=== PATIENT | male | born 1975 | race Caucasian/White ===

== ENCOUNTER 2016-08-27 14:09 | Inpatient (IN) ==
[2016-08-27 15:04] LABS: MANUAL DIFF NEEDED? NO
--- NOTE | 2016-08-27 15:07 | EKG Report ---
Test Performed on : 08/27/2016 2:20:51 PM Test Reason : syncope Blood Pressure : / mmHG Vent. Rate : 079 BPM Atrial Rate : 079 BPM P-R Int : 166 ms QRS Dur : 096 ms QT Int : 514 ms P-R-T Axes : 025 002 -84 degrees QTc Int : 589 ms Sinus rhythm. with occasional premature ventricular complexes. Possible Left atrial enlargement Low voltage QRS Nonspecific T wave abnormality Prolonged QT Abnormal ECG No previous ECGs available Unconfirmed Result
--- NOTE | 2016-08-27 15:19 | Diag Imaging Result Document ---
PROCEDURE NAME: CHEST-2 VIEWS - 08/27/2016 CHEST X-RAY 2 VIEWS: COMPARISON: 12/21/2013. FINDINGS: There is new, significant cardiomegaly. There is pulmonary vascular congestion. There is left basilar infiltrate. There are small bilateral pleural effusions. There may be some pulmonary edema. IMPRESSION: Left basilar infiltrate/pneumonia. Cardiomegaly, pulmonary vascular congestion, trace effusions.
[2016-08-27 15:25] LABS: BASO% 0.2 % (0.0-0.8); EOS# 0.05 X1000 (0.0-0.7); EOS% 0.8 % (0.0-10.0); HEMATOCRIT 44.7 % (42.0-52.0); HEMOGLOBIN 14.6 g/dL (14.0-18.0); LYMPH# 0.52 X1000 (1.2-3.4); LYMPH% 8.6 % (20.5-51.1); MCH 29.4 PG (27-31); MCHC 32.7 g/dL (33-37); MCV 89.9 FL (81-99); MONO# 0.74 X1000 (0.11-0.59); MONO% 12.2 % (1.7-9.3); MPV 11.1 FL (7.4-10.4); NEUT% 78.2 % (42.2-75.2); PLT 122 X1000 (130-400); RBC 4.97 XMIL (4.7-6.1)
[2016-08-27 15:35] LABS: INR 1.14; PROTIME 12.1 Seconds (9.2-11.7)
--- NOTE | 2016-08-27 15:48 | ED EKG INTERP ---
EKG Interpretation - EKG Time of EKG reading by physician:: 14:20 EKG Read and Signed by:: Jordan Perez EKG Interpretation (*Must complete 3 of following elements*): Abnormal ( nonspecific T wave abnormality; prolonged QT) Rate: 79 Rhythm: sinus rhythm w occasional premature ventricular complexes Comments: possible L atrial enlargement; low voltage QRS; Attestation - Scribe Verification/Attestation Scribe:: Magdalena Montaño Acting as Scribe for:: Jordan Perez Scribe documention review:: This chart was documented by a scribe and accurately reflects the service the provider performed and the decisions made by the provider.
[2016-08-27 15:58] LABS: ALBUMIN 3.3 g/dL (3.5-5.0); CALCIUM 7.4 mg/dL (8.8-10.2); MAGNESIUM 2.7 mg/dL (1.5-2.7); POTASSIUM 6.3 mmol/L (3.5-5.1); TOTAL BILIRUBIN 0.39 mg/dL (0.20-1.00)
[2016-08-27] MEDS ORDERED: CALCIUM GLUCONATE 1 GM in NS 50 ML IV ONE (16:05)
[2016-08-27] MEDS ORDERED: HUMULIN R IV ONE (16:07)
[2016-08-27] MEDS ORDERED: D50W SYRINGE IV ONE (16:07)
[2016-08-27] MEDS ORDERED: ALBUTEROL NEB INH ONE (16:08)
--- NOTE | 2016-08-27 16:15 | PROVIDER DOCUMENTATION ---
HPI-Syncope/Dizziness - General Chief Complaint: Syncope Stated Complaint: weakness(unable to complete dialysis) Time Seen by Provider: 08/27/16 15:55 Source: family (girlfriend) Allergies/Adverse Reactions: Patient Allergies Allergy/AdvReac Type Severity Reaction Status Date / Time Penicillins Allergy Unknown Verified 03/23/16 20:09 - History of Present Illness-Syncope/Dizzy Nature of Presenting Problem: Pt is 41 y/o M presents to the ED with syncope for two weeks. Pt's girlfriend states Pt has not been to dialysis since August 19. Pt's girlfriend states he can not make it to dialysis due to only having one vehicle. Pt's girlfriend states Pt has not had N/V/D. If witnessed syncope, by whom?: yes Prior Episodes: reports: recent history Onset/Duration: reports: this morning Timing: reports: still present, intermittent Position/Activity at time of episode: reports: sitting, lying, standing, activity Symptoms prior to episode: reports: none Context: reports: unknown Loss of Consciousness: no loss of consciousness Location of injury. (If syncope resulted in an injury.): reports: none Current Symptoms: reports: weakness. denies: none/feels normal, fever, chills, sweaty, chest pain, breathing difficulty, short of breath, abdominal pain, nausea, vomiting, shoulder pain, arm pain, lightheaded, dizzy, headache, pale, weak pulse, headache, blurred vision, lightheaded Recently Seen Here or By Another Healthcare Provider: No Review of Systems - Adult - REVIEW OF SYSTEMS - ADULT Constitutional: denies: chills, fever Eyes: denies: blurred vision, double vision Ears, Nose, Mouth & Throat: denies: ear pain, nose pain, throat pain Cardiovascular: denies: chest pain, heart murmur, irregular heart rate Respiratory: denies: cough, shortness of breath, wheezing Gastrointestinal: denies: abdominal pain, diarrhea, nausea, vomiting Genitourinary: denies: dysuria, hematuria Musculoskeletal: denies: bone pain, joint pain, neck pain Integumentary: denies: hives, itching Neurological: reports: syncope. denies: dizziness/vertigo, headache/migraines Psychiatric: reports: no symptoms reported Endocrine: reports: no symptoms reported Hematologic/Lymphatic: reports: no symptoms reported Allergic/Immunologic: reports: no symptoms reported All Other Systems: Reviewed and Negative Past History - Adult - PAST MEDICAL HISTORY-ADULT Review of Records: reports: Nursing Assessment Review, Medications Reviewed, Social history reviewed & non-contributory. Major Childhood Illnesses: reports: denies history Cardiovascular: reports: HTN, hyperlipidemia Respiratory: reports: denies history Gastrointestinal: reports: denies history Obstetrical/Gynecological: reports: denies history Genitourinary: reports: kidney disease Musculoskeletal: reports: denies history Neurological: reports: denies history Endocrine/Immune: reports: Diabetes Other Conditions: reports: denies history - PRIOR SURGERIES/PROCEDURES Surgical/Procedure History: reports: cholecystectomy, back/neck (back ) - IMMUNIZATION STATUS Childhood Immunizations: See Nurse Assessment Flu Vaccine: See Nurse Assessment - FAMILY HISTORY Family History: reviewed, not pertinent - SOCIAL HISTORY Smoking: cigarettes, greater than 1 pack/day Provider spent 3-5 mins advising pt. on dangers of tobacco.: Discussed manners to quit use, and f/u contacts for add'l counseling. Substance Use: denies Living Situation: family Physical Exam-General - PHYSICAL EXAM-ADULT Initial Vital Signs Reviewed: Yes - CONSTITUTIONAL General Appearance: alert, no apparent distress, slow to respond. negative: appears well (ill in appearance) - EYES Eyes: PERRL/EOMI, pink conjunctivae - HEAD, EARS, NOSE, MOUTH & THROAT HENMT: normocephalic/atraumatic, moist mucous membranes, normal ENT inspection - NECK Neck: non-tender, full range of motion, supple, normal inspection - RESPIRATORY Respiratory: chest non-tender, lungs clear, normal breath sounds - CARDIOVASCULAR Cardiovascular: normal peripheral pulses, regular rate, rhythm, no edema - GASTROINTESTINAL (ABDOMEN) Abdominal Exam: normal bowel sounds, non tender, soft, distended - LYMPHATIC Lymphatic: no adenopathy - MUSCULOSKELETAL Back Exam: normal inspection, no CVA tenderness, no vertebral tenderness Extremity: normal range of motion, non-tender, normal gait - SKIN Integumentary: normal color, normal turgor, warm/dry - NEUROLOGIC 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, grossly normal, no motor/sensory deficits - PSYCHIATRIC Psych/Mental Status: normal mood/affect, normal thought content, normal thought process, oriented x 3 Progress - PLAN OF CARE/RESULTS Progress/Plan/Lab Results: Laboratory Tests 08/27/16 08/27/16 08/27/16 14:28 14:28 14:28 WBC 6.06 RBC 4.97 Hgb 14.6 Hct 44.7 MCV 89.9 MCH 29.4 MCHC 32.7 L RDW Std Deviation 17.0 H Plt Count 122 L MPV 11.1 H Immature Gran % (Auto) 0.0 Neut % (Auto) 78.2 H Lymph % (Auto) 8.6 L Bland % (Auto) 12.2 H Eos % (Auto) 0.8 Baso % (Auto) 0.2 Immature Gran # (Auto) 0.00 Neut # 4.74 Lymph # 0.52 L Bland # 0.74 H Eos # 0.05 Baso # 0.01 PT INR PTT (Actin FS) D-Dimer 1.11 H Sodium 139 Potassium 6.3 H* Chloride 98 Carbon Dioxide 17 L Anion Gap 24 BUN 135 H Creatinine 11.9 H* Estimated GFR/1.73 m2 5 BUN/Creatinine Ratio 12 Glucose 186 H Calculated Osmolality 329 Calcium 7.4 L Magnesium 2.7 Total Bilirubin 0.39 AST 12 ALT 16 Alkaline Phosphatase 151 H Creatine Kinase 280 H Creatine Kinase Index 12.8 H CK-MB (CK-2) 35.82 H Troponin T [id number]-[id number] Pept Total Protein 6.0 L Albumin 3.3 L Globulin 2.7 Albumin/Globulin Ratio 1.2 08/27/16 08/27/16 08/27/16 14:28 14:28 14:28 WBC RBC Hgb Hct MCV MCH MCHC RDW Std Deviation Plt Count MPV Immature Gran % (Auto) Neut % (Auto) Lymph % (Auto) Bland % (Auto) Eos % (Auto) Baso % (Auto) Immature Gran # (Auto) Neut # Lymph # Bland # Eos # Baso # PT 12.1 H INR 1.14 PTT (Actin FS) 32.0 D-Dimer Sodium Potassium Chloride Carbon Dioxide Anion Gap BUN Creatinine Estimated GFR/1.73 m2 BUN/Creatinine Ratio Glucose Calculated Osmolality Calcium Magnesium Total Bilirubin AST ALT Alkaline Phosphatase Creatine Kinase Creatine Kinase Index CK-MB (CK-2) Troponin T 0.701 H* [id number] Pept > 92207 H Total Protein Albumin Globulin Albumin/Globulin Ratio Orders Category Date Time Status Cardiac Monitoring DIRECTED Care 08/27/16 14:19 Active Saline Loc NOW Care 08/27/16 14:19 Active CHEST-2 VIEWS [RAD] Stat Exams 08/27/16 14:19 Draft CBC WITH ELECTRONIC DIFF [HEME] Stat Lab 08/27/16 14:28 Completed CK PROFILE [SP CHEM] Stat Lab 08/27/16 14:28 Completed COMPREHENSIVE METABOLIC PANEL [CHEM] Stat Lab 08/27/16 14:28 Completed D-DIMER [CHEM] Stat Lab 08/27/16 14:28 Completed MAGNESIUM [CHEM] Stat Lab 08/27/16 14:28 Completed PRO B-NATRIURETIC PEPTIDE Stat Lab 08/27/16 14:28 Completed PROTIME WITH INR [COAG] Stat Lab 08/27/16 14:28 Completed PTT [COAG] Stat Lab 08/27/16 14:28 Completed TROPONIN T Stat Lab 08/27/16 14:28 Completed UA NIMS W/REFLEX CULT [URINALYSIS] Stat Lab 08/27/16 16:04 Uncollected Albuterol 0.5% INH Conc [Albuterol 0.5% INH Conc For Med 08/27/16 16:30 Once Hyperkalemia] 25 mg INH NOW ONE Calcium Gluconate 1 gm Med 08/27/16 16:05 Active 0.9% Sodium Chloride Inj [Ns] 50 ml IV NOW Dextrose 50% Syringe [D50w Syringe] Med 08/27/16 16:07 Discontinued 50 ml IV NOW ONE Insulin Human Regular [Humulin R] Med 08/27/16 16:07 Discontinued 10 unit IV NOW ONE Aerosol Treatments Routine Oth 08/27/16 16:09 Active Aerosol Treatments Stat Oth 08/27/16 16:09 Active EKG [EKG] Stat Ther 08/27/16 14:19 Draft Vital Signs - 24 hr 08/27/16 14:14 Temperature 97.4 F L Pulse Rate 75 Respiratory 16 Rate Blood Pressure 169/83 O2 Sat by Pulse 97 Oximetry - XRAY 1 XRAY: Bilateral XRAY Study: Chest Impression: Abnormal (pulmonary vascular congestion; trace effusions) XRAY Interpretation: L basilar infilatrate/pneumonia. cardiomegaly; - CONSULTS/PCP/HOSPITALIST Notification #1 *Consult/PCP/Hospitalist*: Dr. Horton Time Discussed: 16:27 (Dr. Horton wants Pt admitted to hospitalist ) Reason/Comments: Dr. Perez consults with Dr. Horton about Pt #2 Consult: Dr. Haney Time Discussed: 16:36 (Dr. Haney accepted admit ) Reason/Comments: Dr. Perez consulted with Dr. Haney about admit of Pt Consult Disposition: Admit Departure - Departure Time of Disposition Order: 16:28 DIAGNOSIS: Hyperkalemia, Noncompliance with renal dialysis Disposition: ADMITTED INPATIENT 09 Certified Medical Emergency: Emergent Condition: Fair Additional Instructions: ED Follow Up Instructions: You have been treated by a care provider in the Emergency Department. These instructions are being provided to you so you can have an understanding of how to care for yourself upon discharge. Upon discharge from the Emergency Department, you are responsible for making arrangements for follow-up care by a physician of your choice. Take all prescribed medications as directed. Return to the Emergency Department immediately for any new or worsening symptoms. You may call the Physician Referral phone number at [phone] to obtain a list of Physicians who are taking new patients. Referrals: None,PCP [Primary Care Provider] - Attestation - Scribe Verification/Attestation Scribe:: Magdalena Montaño Acting as Scribe for:: Jordan Perez Scribe documention review:: This chart was documented by a scribe and accurately reflects the service the provider performed and the decisions made by the provider.
[2016-08-27 16:18] LABS: CK INDEX 12.8 (0.0-2.5); CK-MB 35.82 ng/mL (0.0-5.0)
[2016-08-27] MEDS ORDERED: ALBUTEROL 0.5% INH CONC FOR HYPERKALEMIA INH ONE (16:30)
[2016-08-27] MEDS ORDERED: HEPARIN ONE (16:50)
[2016-08-27] MEDS ORDERED: NS 3,000 ML ONE (16:50)
[2016-08-27] MEDS ORDERED: ASPIRIN PO STA (19:08)
[2016-08-27] MEDS ORDERED: TIGHT: 0.2 ML/HR MISC PRN (20:21)
[2016-08-27] MEDS ORDERED: NS 2,000 ML MISC PRN (20:21)
[2016-08-27] MEDS ORDERED: HEPARIN IV PRN (20:21)
--- NOTE | 2016-08-27 20:40 | HISTORY AND PHYSICAL ---
RESEARCH INTERN: Dr. Ajit Horton. CHIEF COMPLAINT: Chest pain. Shortness of breath. Syncope and missed dialysis. HISTORY OF PRESENT ILLNESS: Mr. Villagran is a 41-year-old male with a history of ESRD on hemodialysis who is followed by Dr. Horton. Unfortunately he has missed his dialysis over the past week and a half as he could not find a ride to the dialysis clinic. As such, he has been complaining of worsening shortness of breath and generalized edema. He also states that he is having intermittent chest pain, he describes midsternal kicking type sensation that does not radiate and is made worse with exertion and relieved with rest. He also states he has been dizzy today and actually had 2 syncopal episodes. He reports worsening shortness of breath and cough with subjective fever and chills. He came to the ER today and was noted to have a potassium of 6.3, creatinine 11.9 and fairly elevated CK/MB and troponins. Chest x-ray was reported as cardiomegaly and pulmonary edema, left lower lobe infiltrate. He was treated for his hyperkalemia with medicines in the ER and he subsequently has gone to dialysis where this interview is currently being conducted. He does report that he still has mild chest pain, EKG does not show anything acute. We have ordered a new set of laboratory data including a BMP and cardiac enzymes and those are pending. In the meantime, he will be dialyzed and then transferred to the floor. PAST MEDICAL HISTORY: 1. ESRD on hemodialysis followed by Dr. Horton. 2. Diabetes mellitus. 3. Hyperlipidemia. 4. Nicotine dependence. 5. Medical noncompliance. SURGICAL HISTORY: C5-C6 fusion. SOCIAL HISTORY: Patient smokes a half pack a day. He is currently engaged. He denies alcohol or drug use. He is on disability. FAMILY HISTORY: Noncontributory. REVIEW OF SYSTEMS: Ten point review of systems obtained and found to be negative with the exception of the HPI. HOME MEDICATIONS: They have not been compiled and patient does not know them by name. ALLERGIES: PENICILLIN. PHYSICAL EXAMINATION: VITAL SIGNS: Blood pressure is 155/90, heart rate 76, respiratory rate 20, O2 saturations 98% on 2 L nasal cannula. Temperature is 97.4 degrees. GENERAL: This is a chronically ill-appearing 41-year-old male, lying in hospital bed in no acute distress. NEUROLOGIC: The patient is slightly lethargic but opens eyes to verbal stimulus. He follows commands without focal deficits. HEENT: Head is atraumatic and normocephalic. His pupils are equal, round, reactive to light. Oral mucosa is moist. Trachea is midline. CHEST: Diminished with crackles at the bases. CV: Regular rate and rhythm. S1-S2 is noted. GI: Soft, nondistended, nontender. Bowel sounds positive. EXTREMITIES: With 2+ pitting edema bilaterally. Pulses that are diminished. DIAGNOSTIC DATA: Chest x-ray shows pulmonary edema, cardiomegaly and left lower lobe infiltrate. Sodium 139, potassium 6.3, chloride 98, CO2 17, anion gap 24, BUN 135, creatinine 11.9, glucose 186, calcium 7.4, AST 12, ALT 16, alkaline phosphatase 151, CK 280, CK index 12.8, CK/MB 35.82, troponin 0.701, proBNP greater than 35,000, albumin 3.3. WBC 6.06, hemoglobin 14.6, hematocrit 44.7, platelet count 122,000. ASSESSMENT AND PLAN: 1. Fluid volume overload: Secondary to his untreated end-stage renal disease. He is currently receiving hemodialysis. The patient also seems to have a new onset congestive heart failure which is contributing to his fluid volume overload. He will need an echocardiogram and evaluation by cardiology which has been ordered. 2. Hyperkalemia: This has been medically treated in the emergency room, he is also receiving hemodialysis, we will follow his electrolytes closely and treat if necessary. 3. Elevated cardiac enzymes: His enzymes are typically higher than we like to see in a patient with end-stage renal disease. He is complaining of chest pain and he has fairly massive cardiomegaly on his chest x-ray, his EKG does not show anything acute. We will discuss with cardiology the need for possible further intervention or maybe even anticoagulation. In the meantime will make sure he gets an aspirin and continue to trend his enzymes and again will consult with Cardiology. 4. Left lower lobe pneumonia: We will obtain blood cultures and start Levaquin at renal dosing. 5. Diabetes mellitus: Will add pattern blood sugars and sliding scale insulin. We will also check a hemoglobin A1c in the morning. 6. Apparent new onset congestive heart failure: An echocardiogram has been ordered. He is receiving hemodialysis. We will follow his daily weights and he will need quite a bit of new medication. Cardiology has been consulted. For now we will add aspirin. 7. Nicotine dependence: Patient has been highly advised to quit smoking. Nicotine patch has been prescribed. We will continue daily cessation education. 8. Deep vein thrombosis prophylaxis with heparin given his renal failure. Further recommendations to follow. Dictated by KAROL Soto for Mik Blank MD
[2016-08-27] MEDS ORDERED: DUONEB (A & A) INH PRN (21:21)
[2016-08-27 22:24] LABS: IRON SATURATION 17 %; TIBC 235 ug/dL; TOTAL IRON 41 ug/dL (53-167); UNBOUND IRON 194 ug/dL (112-346)
[2016-08-27 22:25] LABS: CALCIUM 7.4 mg/dL (8.8-10.2); HEMOGLOBIN A1C 8.7 % (4.8-6.0); POTASSIUM 4.6 mmol/L (3.5-5.1)
[2016-08-27 22:31] LABS: FREE T4 0.9 ng/dL (0.93-1.70)
[2016-08-27] MEDS: PROTONIX IV SCH (23:02)
[2016-08-27] MEDS: NICODERM PATCH TD SCH (23:02)
[2016-08-27] MEDS: SODIUM CHLORIDE 0.9% INJ SCH (23:02)
[2016-08-27] MEDS: DUONEB (A & A) INH SCH ×2 (23:38→23:39)
[2016-08-28] MEDS: HEPARIN SUBQ SCH ×3 (00:51→22:13)
[2016-08-28] MEDS: LEVAQUIN 250 MG in NS 50 ML IV SCH (00:54)
[2016-08-28] MEDS: DUONEB (A & A) INH SCH ×5 (04:06→22:39)
[2016-08-28 06:57] LABS: HEMATOCRIT 42.6 % (42.0-52.0); HEMOGLOBIN 13.5 g/dL (14.0-18.0); MCH 28.8 PG (27-31); MCHC 31.7 g/dL (33-37); MPV 9.8 FL (7.4-10.4); RBC 4.68 XMIL (4.7-6.1)
[2016-08-28 07:23] LABS: AGAP 23; ALBUMIN 2.9 g/dL (3.5-5.0); BUN 103 mg/dL (8-22); CALCIUM 7.2 mg/dL (8.8-10.2); CHLORIDE 98 mmol/L (98-107); COSMO 313; HDL 34 mg/dL (35-55); LDL 70 mg/dL; POTASSIUM 5.3 mmol/L (3.5-5.1); SODIUM 138 mmol/L (136-145); TCO2 17 mmol/L (25-35); TRIGLYCERIDES 92 mg/dL (39-160); VLDL 18 mg/dL
[2016-08-28] MEDS ORDERED: NS 2,000 ML MISC PRN (09:19)
[2016-08-28] MEDS ORDERED: HEPARIN IV PRN (09:19)
[2016-08-28] MEDS ORDERED: TIGHT: 0.2 ML/HR MISC PRN (09:19)
[2016-08-28] MEDS: NICODERM PATCH TD SCH (10:07)
--- NOTE | 2016-08-28 13:56 | CONSULTATION ---
DATE OF CONSULTATION: 08/28/2016 REASON FOR CONSULTATION: ESRD management. HISTORY OF PRESENT ILLNESS: Mr. Villagran is a 41-year-old, white male who is known to me from the outpatient dialysis arena. He has diabetes, hypertension, hyperlipidemia and end-stage kidney disease as a result of his diabetes. His compliance with his dialysis regimen is very poor which he universally attributes to transportation though the denies this. He came into the emergency room because of shortness of breath and chest discomfort. He has received a narcotic pain medication this morning and really did not interact with me. PAST MEDICAL HISTORY: As above. HOME MEDICATIONS: Not obtained yet. ALLERGIES: Penicillin. SOCIAL HISTORY: He lives with his fiancee. He continues to smoke. No alcohol. 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 PHYSICAL EXAMINATION: Vital Signs: Blood pressure 146/80, heart rate 86, respirations 16, afebrile. Intake 50 mL. Output 4.4 L. General: No acute distress. Skin: Warm and dry. Conjunctivae are pink. Neck: Neck veins are not appreciated. Trachea is midline. Heart: Regular with a gallop. Lungs: Equal, shallow, few crackles. Abdomen: Soft, nontender. Bowel sounds are present. Extremities: Have 2+ edema. No clubbing or cyanosis. Neurologic: Nonfocal grossly. LABORATORY DATA: Sodium 138, potassium 5.3, chloride 98, bicarbonate 17, BUN 103, creatinine 9.5, hemoglobin 13.5. IMPRESSION: End-stage kidney disease with volume overload, secondary to dialysis noncompliance. He has a high BUN and elevated potassium despite dialysis yesterday. We will dialyze again today with a goal of another 4-6 L of ultrafiltration. Two potassium bath. No other medical changes today.
[2016-08-28] MEDS ORDERED: HEPARIN ONE (14:41)
[2016-08-28] MEDS ORDERED: NS 2,000 ML ONE (14:42)
--- NOTE | 2016-08-28 15:28 | ECHO REPORT ---
ORDER DATE: 08/27/2016 PROCEDURE: This is a 2D, M-mode, color Doppler exam. This is a technically satisfactory study. INTERPRETATION: 1. The left ventricle is normal in size with mild concentric hypertrophy and with depressed overall systolic function. Estimated left ventricular ejection fraction is between 40% and 50%. There is more pronounced hypokinesis of the basal to mid portions of the left ventricle. The left ventricular apex has preserved wall motion. Mitral Doppler inflow patterns indicate a pseudonormalization pattern of uncertain significance. 2. The left and right atria are intact. There is moderate enlargement of the left atrium and mild enlargement of the right atrium. The right ventricle has preserved overall size and function. 3. There is a small to moderate circumferential pericardial effusion. This measures 1.35 cm posterior at end diastole and around 0.3 cm anteriorly at end diastole. Doppler inflow pattern of the mitral valve and tricuspid valve are nonspecific. There is no obvious right atrial or right ventricular collapse. This is nonspecific. 4. The aortic valve is trileaflet. There is no evidence for stenosis. There is trivial to mild aortic insufficiency. 5. The mitral valve is structurally intact. The tricuspid valve is intact. 6. There is trivial mitral regurgitation and trivial tricuspid regurgitation. 7. The peak pulmonary artery pressure could not be accurately assessed in this study. 8. There appears to be a moderate-sized pleural effusion. CONCLUSION: 1. Mild to moderately depressed overall systolic function. Diastolic heart issues are most likely present. 2. Biatrial enlargement. 3. Small to moderate circumferential pericardial effusion. No obvious acute tamponade indicators are present, although mitral Doppler inflow is nonspecific. 4. Moderate pleural effusion.
--- NOTE | 2016-08-28 16:37 | CONSULTATION ---
DATE OF CONSULTATION: 08/28/2016 REASON FOR CONSULTATION: Shortness of breath and cardiac evaluation. HISTORY: Patient is a pleasant 41-year-old gentleman, who presents after missing hemodialysis for several days. The patient had markedly elevated BUN and creatinine with elevated potassium level. The patient has been having somewhat of a decreased responsiveness and has been somewhat sluggish. He has been having some atypical chest pain and increasing shortness of breath as related to this. The patient states he has been on dialysis for about the last year. Etiology of the renal function he states is unknown, although most likely this is secondary to diabetes. The patient denies any known previous cardiac history. PAST MEDICAL HISTORY: Patient does have a history of diabetes treated medically. There is a history of dyslipidemia. There is a history of hypertension. There is no documented pulmonary disease. There is no history of thyroid disease. PAST SURGICAL HISTORY: From a surgical standpoint, patient has had C5-C6 fusion. He has had AV fistula placed. SOCIAL HISTORY: Per report, patient does smoke up to a half pack of cigarettes a day. Denies alcohol or illicit drug use. FAMILY HISTORY: Noncontributory. REVIEW OF SYSTEMS: General: Otherwise been in good health. No recent illnesses. No fevers or chills. HEENT: No headache. No visual abnormalities. Chest: No current orthopnea, no palpitations. Abdomen: No abdominal pain. No diarrhea. No constipation. Extremities: He has had some mild swelling over the last few days. No weakness. Neurological: No seizures, syncope or stroke. PHYSICAL EXAMINATION: General: This is a well-developed male. He is somewhat somnolent, but answers questions appropriately. HEENT: Exam is otherwise benign. Neck: Supple. Chest: Bilateral breath sounds are clear. Cardiovascular: Reveals faint heart sounds, but a regular rate and rhythm. Abdomen: Positive bowel sounds. Nontender, nondistended. Extremities: There is trivial pitting edema in the pretibial and ankle distribution. DIAGNOSTIC DATA: I reviewed an EKG indicating sinus rhythm. There is LVH pattern. No significant ST abnormality noted. I have reviewed laboratory work. White count today is 8, hemoglobin and hematocrit 13 and 42, platelet count is 77. Today, sodium is 138, potassium 5.3, BUN is 103 with a creatinine of 9.5. Calcium is 7.2. CK initially was 201 followed by 184. CK MB was 35 with a relative index of 12. Troponin is 0.65. ProBNP is greater than 35,000. TSH is 4.4 with a free T4 of 0.9. I reviewed an echocardiogram on patient. Left ventricular ejection fraction is in the neighborhood of 40% to 50%. There is evidence for diastolic filling pattern. There is a small to moderate pericardial effusion. No obvious criteria for tamponade physiology are met; however, again there is somewhat of a restrictive filling pattern on mitral valve inflow. There is no sign of right heart collapse. Pleural effusion was also noted on this echocardiogram. IMPRESSION: 1. End-stage renal disease. The patient has been off hemodialysis now for at least the last 1-2 weeks. He has a markedly elevated BUN and creatinine with marked volume overload. He is back on hemodialysis and tolerating this well. 2. Pericardial effusion. There is a pericardial effusion which I suspect is related to missed hemodialysis. Although there is no obvious tamponade criteria met on echocardiogram, sometimes this seems to be a difficult judgment. Clinically patient is stable. He is not hypotensive on hemodialysis. We are continuing to follow this closely. I would repeat limited echocardiogram in the next several days after BUN and creatinine are more normalized. 3. Positive troponin. Patient does have a positive troponin which may be related to his renal dysfunction. He also has a mild elevation in CK MB fraction with an elevation in the relative index. I think that noninvasive ischemia workup in the form of stress testing would be a reasonable option once the patient's renal status is more stable. Patient's echocardiogram would indicate more pronounced hypokinesis within all of the basilar regions of the left ventricle with the apex being relatively spared. This is not a pattern that is consistent with any discrete coronary lesion. 4. Hypothyroidism. The patient appears to have a hypothyroid state. I would defer this to primary care medicine.
--- NOTE | 2016-08-28 18:36 | PROGRESS NOTE ---
DATE: 08/28/2016 SUBJECTIVE: This patient states that he is feeling about the same. He is complaining of mild shortness of breath. He is still overloaded. The plan is to continue with hemodialysis, he received a hemodialysis yesterday and today he will get it again. OBJECTIVE: Vital Signs: Temperature 97.5 degrees, pulse 71, respiratory rate 16, blood pressure 146/80, O2 saturation 100% on room air. HEENT: Head normocephalic, no trauma. PERRLA. Neck: Supple. No JVD. No masses. Cardiovascular: RRR. No murmurs. No gallops. Chest: Decreased breath sounds at the bases with rales with crackles. Abdomen: Soft, nontender , nondistended. No hepatosplenomegaly. Extremities: Two to 3+ lower extremity edema. Neurological: The patient is alert and oriented x3. No focal neurological deficits. LABORATORY: WBC 8, hemoglobin 13.5, hematocrit 42.6, platelets 77,000, sodium 138, potassium 5.3, chloride 98, bicarbonate 17, BUN 103, creatinine 9.5, glucose 184, calcium 7.2. ASSESSMENT AND PLAN: 1. Fluid volume overload secondary to his on treated end-stage renal disease, he got hemodialysis yesterday and the plan is to give him hemodialysis today, this patient can not go for dialysis on Tuesday and Tuesday because they do not have transportation. 2. Hyperkalemia secondary to kidney dysfunction, he will get hemodialysis again today. 3. Elevated cardiac enzymes likely related also to end-stage renal disease. Cardiology Department evaluated this patient and he has also some pericardial effusion, once the kidney function and the fluid overload is getting better probably this patient will have a stress test done by Cardiology either as an inpatient or outpatient. 4. Left lower lobe pneumonia. We will continue with the same treatment, Levaquin at renal dosing. 5. Type 2 diabetes. We will continue with pattern blood sugars and sliding scale insulin. I will also check a hemoglobin A1c. 6. Apparent new onset CHF, at this point we do not know exactly if this heart failure is new or not. His ejection fraction is about 40-50%. Also he has diastolic issues. Cardiology Department is on board. We will monitor. 7. Nicotine dependence. This patient has been highly advised to quit smoking. I will continue doing that every single day. [facility]
[2016-08-28] MEDS: PROTONIX IV SCH (22:13)
[2016-08-28] MEDS: SODIUM CHLORIDE 0.9% INJ SCH (22:13)
[2016-08-29] MEDS: DUONEB (A & A) INH SCH ×4 (02:51→15:09)
[2016-08-29] MEDS: HUMALOG SUBQ SCH ×4 (06:21→21:59)
[2016-08-29 07:32] LABS: ALBUMIN 2.8 g/dL (3.5-5.0); POTASSIUM 4.9 mmol/L (3.5-5.1)
[2016-08-29 07:36] LABS: CALCIUM 6.8 mg/dL (8.8-10.2)
[2016-08-29 09:20] LABS: HEMATOCRIT 39.3 % (42.0-52.0); HEMOGLOBIN 12.7 g/dL (14.0-18.0); MCH 29.1 PG (27-31); MCHC 32.3 g/dL (33-37); MCV 90.1 FL (81-99); RBC 4.36 XMIL (4.7-6.1)
[2016-08-29] MEDS ORDERED: CALCIUM GLUCONATE 4.65 MEQ in NS 50 ML IV ONE (13:58)
[2016-08-29] MEDS: HEPARIN SUBQ SCH ×2 (14:42→21:53)
[2016-08-29] MEDS: NICODERM PATCH TD SCH (14:42)
--- NOTE | 2016-08-29 15:18 | PROGRESS NOTE ---
DATE: 08/29/2016 SUBJECTIVE: Overall patient feels fatigued and tired. He is not overtly short of breath. He is not having chest pain or orthopnea. OBJECTIVE: Vital signs: Heart rate is in the 90s. Telemetry indicates this is sinus rhythm. Blood pressure is currently stable. I's and O's: Patient is negative 8650 mL over the last 48 hours. This is from hemodialysis. General: On exam this is a well-developed male. He is awake and alert. HEENT: Benign. Neck: Supple. Chest: Bilateral breath sounds, which are faint in the bases but clear. Cardiovascular: Reveals faint heart sounds but regular. Abdomen: Positive bowel sounds. Nontender, nondistended. Extremities: There is nonpitting edema within the feet and ankles. IMPRESSION: End-stage renal disease. Again, patient has been off dialysis. He has a significant volume overload. In review of his echocardiogram, there is a moderate pericardial effusion without obvious tamponade. Although we are following this clinically, I would recommend repeat limited echocardiogram within the next several days to reevaluate this after several more cycles of dialysis.
--- NOTE | 2016-08-29 15:55 | PROGRESS NOTE ---
DATE: 08/29/2016 SUBJECTIVE: This patient states that he is feeling a little bit better. He has not complaining of shortness of breath. He is still overloaded. Nephrology Department is following this patient. This patient is getting dialysis. He has received dialysis for 2 days in a row. OBJECTIVE: Vital Signs: Temperature 99.4 degrees, pulse 97, respiratory rate 17, blood pressure 165/78, oxygen saturation 95% on 2 L of nasal cannula. HEENT: Head normocephalic. No trauma. PERRLA. Neck: Supple. No JVD. No masses. Central trachea. Chest: He has crackles at the bases. Otherwise clear lungs. Abdomen: Soft, nontender, nondistended. No hepatosplenomegaly. Extremities: He has 3+ lower extremity edema. No clubbing. No cyanosis. Neurological: The patient is alert and oriented x3. No focal neurological deficits. LABORATORY: WBC 7, hemoglobin 12.7, hematocrit 39.3, platelets 65,000. Sodium 141, potassium 4.9, chloride 99, bicarbonate 23, BUN 77, creatinine 7.9, glucose 223, calcium 6.8, ionized calcium 0.95, albumin 2.8. ASSESSMENT AND PLAN: 1. Fluid overload secondary to end-stage renal disease. He got hemodialysis 2 days in a row. Yesterday was his last hemodialysis. The fluid overload is because this patient is noncompliant with the dialysis as an outpatient. 2. Hyperkalemia secondary to end-stage renal disease. Today the potassium is normal. 3. Hypocalcemia, corroborated by the ionized calcium. I gave him a dose of calcium gluconate. Will monitor. 4. Elevated cardiac enzymes, likely related also to end-stage renal disease. Cardiology Department evaluated this patient and he also has some pericardial effusion. They recommend that once the fluid overload and the symptomatology improve probably this patient will need a stress test done by Cardiology either as an inpatient or outpatient. 5. Left lower lobe pneumonia. I will continue with the same treatment. He is on Levaquin at renal dosing. 6. Type 2 diabetes. Continue with patterned blood sugar and sliding scale insulin. I will also check the hemoglobin A1c. 7. Apparent new onset congestive heart failure. At this point his ejection fraction is about 40 to 50%. Also he has diastolic issues. Cardiology Department is following this patient. 8. Nicotine dependence. This patient has been highly advised to quit smoking. I will continue doing that every single day.
[2016-08-29] MEDS: LEVAQUIN 250 MG in NS 50 ML IV SCH (18:35)
[2016-08-29] MEDS: SODIUM CHLORIDE 0.9% INJ SCH (21:53)
[2016-08-29] MEDS: PROTONIX IV SCH (21:53)
[2016-08-30] MEDS: HUMALOG SUBQ SCH ×3 (06:19→16:42)
[2016-08-30 07:00] LABS: HEMOGLOBIN 12.9 g/dL (14.0-18.0); MCH 28.8 PG (27-31); MCHC 31.5 g/dL (33-37); MCV 91.5 FL (81-99); MPV 11.1 FL (7.4-10.4); RBC 4.48 XMIL (4.7-6.1)
[2016-08-30] MEDS ORDERED: NS 2,000 ML MISC PRN (07:09)
[2016-08-30 07:15] LABS: FREE T4 0.81 ng/dL (0.93-1.70)
[2016-08-30] MEDS: NICODERM PATCH TD SCH (08:05)
[2016-08-30] MEDS: HEPARIN SUBQ SCH (08:05)
[2016-08-30 08:08] LABS: ALBUMIN 2.8 g/dL (3.5-5.0); POTASSIUM 4.9 mmol/L (3.5-5.1)
[2016-08-30 08:11] LABS: UR AMPHETAMINES QUAL NONE DETECTED (NONE DETECT); UR BARBITUATES QUAL NONE DETECTED (NONE DETECT); UR BENZODIAZEPIN QUAL NONE DETECTED (NONE DETECT); UR CANNABINOIDS QUAL PRESUMPTIVE POSITIVE (NONE DETECT); UR COCAINE QUAL NONE DETECTED (NONE DETECT); UR METHADONE QUAL NONE DETECTED (NONE DETECT); UR OPIATES QUAL NONE DETECTED (NONE DETECT); UR OXYCODONE QUAL NONE DETECTED (NONE DETECT); UR PCP QUAL NONE DETECTED (NONE DETECT)
[2016-08-30 08:35] VITALS: BP 170/92
[2016-08-30 08:44] LABS: URINE MICRO REVIEW NEEDED? NO; URINE SOURCE CLEAN CATCH
[2016-08-30 08:47] LABS: BILIRUBIN URINE NEGATIVE (NEGATIVE); BLOOD URINE MODERATE (NEGATIVE); COLOR YELLOW; GLUCOSE URINE 500 mg/dL (NEGATIVE); LEUKOCYTES URINE NEGATIVE (NEGATIVE); NITRITE URINE NEGATIVE (NEGATIVE); PH URINE 6.5; PROTEIN URINE >600 mg/dL (NEGATIVE); SP GRAVITY URINE 1.017; TURBIDITY URINE CLEAR (CLEAR); UROBILINOGEN URINE NORMAL (NORMAL)
[2016-08-30 08:48] LABS: UR EPITHELIAL CELLS <10 /HPF (<10); URINE BACTERIA NEGATIVE /HPF; URINE CULTURE NEEDED? YES; URINE RBC 20-40 /HPF (<10)
[2016-08-30] MEDS ORDERED: HEPARIN ONE (10:04)
[2016-08-30] MEDS ORDERED: NS 2,000 ML ONE (10:04)
--- NOTE | 2016-08-30 13:21 | PROGRESS NOTE ---
DATE: 08/30/2016 SUBJECTIVE: This patient states that he is feeling about the same. He is not complaining of shortness of breath. He is still overloaded. Nephrology Department is following this patient, and probably he will receive dialysis today or tomorrow. OBJECTIVE: Vital Signs: Temperature 97.8 degrees, pulse 91, respiratory rate 21, blood pressure 170/92, oxygen saturation 100% on 4 L of nasal cannula. HEENT: Head normocephalic. No trauma. PERRLA. Neck: Supple. No JVD. No masses. Central trachea. Chest: Crackles at the bases, otherwise clear lungs. Abdomen: Soft, nontender, nondistended. No hepatosplenomegaly. Extremities: There is 3+ lower extremity edema. No clubbing. No cyanosis. Skin: On the lower extremities, he has multiple chronic lesions. It looks like this represents chronic folliculitis. Neurological: The patient is alert and oriented x3. No focal neurological deficits. LABORATORY DATA: WBC 6, hemoglobin 12.9, hematocrit 41, platelets 58. Sodium 139, potassium 4.9, chloride 96, bicarbonate 20, BUN 82, creatinine 8.1, glucose 163, calcium 7, albumin 2.8. ASSESSMENT AND PLAN: 1. Fluid overload secondary to end-stage renal disease. We will continue with the hemodialysis. The fluid overload is because this patient is not compliant with dialysis as an outpatient. 2. Hyperkalemia, resolved. 3. Hypocalcemia. Again, we will replace the calcium today. 4. Elevated cardiac enzymes, likely related also to end-stage renal disease. Cardiology Department is evaluating this patient. Probably, he will need an echocardiogram done in the future. This patient presented with pericardial effusion that probably is related also to fluid overload. 5. Left lower lobe pneumonia. We will continue with the same treatment. He is on Levaquin at renal dose. 6. Type 2 diabetes. Continue with patterned blood sugar and sliding scale insulin. 7. Congestive heart failure. At this point, the ejection fraction is around 40% to 50%. He also has diastolic problems. Cardiology Department is following this patient. 8. Nicotine dependence. This patient has been highly advised to quit smoking. I will continue doing this every single day.
--- NOTE | 2016-08-30 14:55 | PROGRESS NOTE ---
DATE: 08/30/2016 SUBJECTIVE: He is difficult to arouse. He did open his eyes and follow commands for the dialysis nurse. She reports that he was missing from the floor for a period of time and came back in this state. OBJECTIVE: Vital Signs: Blood pressure 170/92, heart rate 91, respirations 21, afebrile. Intake 400 mL. Output 50 mL. General: No acute distress. Skin: Warm and dry. HEENT: Conjunctivae are pink. Neck: Neck veins are not appreciated. Heart: Regular. Lungs: Have equal breath sounds. No crackles. Abdomen: Soft, nontender. Bowel sounds are present. Extremities: Have 2+ edema. No clubbing or cyanosis. LABORATORY DATA: Sodium 138, potassium 4.9, chloride 96, bicarbonate 20, BUN 82, creatinine 8.1. Hemoglobin 12.9. IMPRESSION: 1. End-stage kidney disease with volume overload. Continue dialysis today with a goal of 5 L ultrafiltration. He is on a 2 potassium bath. 2. Electrolytes are acceptable. 3. Acid-base in target. 4. Anemia stable. 5. Hypertension. Remains above target but we will not titrate his medication until we have achieved a euvolemic state.
--- NOTE | 2016-09-03 07:49 | EKG Report ---
Test Performed on : 08/27/2016 7:40:13 PM Test Reason : done by RT/No order in [employer] Blood Pressure : / mmHG Vent. Rate : 082 BPM Atrial Rate : 082 BPM P-R Int : 156 ms QRS Dur : 094 ms QT Int : 406 ms P-R-T Axes : 051 044 241 degrees QTc Int : 474 ms Normal sinus rhythm. Possible Left atrial enlargement Low voltage QRS T wave abnormality, consider lateral ischemia Prolonged QT Abnormal ECG No previous ECGs available Nonspecific T wave abnormality now evident in Inferior leads - new Nonspecific ST and T wave abnormality far lateral leads [id number] - new Confirmed by Will Díaz DO ([id number]) on 09/03/2016 12:40:50 PM
--- NOTE | 2016-09-06 20:42 | DISCHARGE SUMMARY ---
ADMISSION DATE: 08/27/2016 DISCHARGE DATE: 08/30/2016 DIAGNOSES LEADING TO HOSPITALIZATION: 1. Fluid volume overload. 2. Hyperkalemia. 3. Elevated cardiac enzymes. 4. Left lower lobe pneumonia. 5. End-stage renal disease on hemodialysis. 6. Type 2 diabetes. 7. Possible new onset congestive heart failure. 8. Nicotine dependence. HOSPITAL COURSE: A 41-year-old male with a history of end-stage renal disease on hemodialysis, followed by Dr. Horton. Unfortunately he has been missing his dialysis over the past week and a half and the reason was he could not find a ride to the dialysis clinic. Because of that he has been complaining of worsening shortness of breath and generalized edema. He also states that he has been having intermittent chest pain not radiating, is sternal, that is worse with exercise and relieved by rest. Also he has been feeling dizzy and had 2 syncopal episodes. He also reported worsening shortness of breath and cough with subjective fever and chills. He came to the emergency department on 08/27/2016 and was admitted the same day. It was found that the potassium was 6.3, creatinine 11.9, elevated CK-MB and troponin. Cardiomegaly and pulmonary edema on the x-ray, also lower lobe infiltrate. The hyperkalemia was treated and he was admitted to the medical floor with telemetry. He received multiple hemodialysis, he was evaluated by Cardiology Department and also by the Nephrology Department, we have a new echocardiogram that showed mild to moderate depressed overall systolic function with an ejection fraction between 40- 50%, also [id number] circumferential pericardial infusion but not tamponade and moderate pleural effusion as well. The patient was improving on a daily basis but this patient on 08/30/2016 decided to leave the hospital AMA. When I went to the room the patient already left. The vital signs that day on 08/30/2016 were temperature 97.8 degrees, pulse 91, respiratory rate 21, blood pressure 170/92, oxygen saturation 100% on 4 L of nasal cannula. LABORATORY: WBC 6.6, hemoglobin 12.9, hematocrit 41, platelet 58,000. Sodium 138, potassium 4.9, chloride 96, bicarbonate 20, BUN 82, creatinine 8.1, glucose 169, calcium 7. DISPOSITION: This patient decided to go AMA.
== END 2016-08-30 17:15 | disposition left against medical advice (07) | DRG 291 ==
LOC: ED 14:09 → 3N 20:57
PROVIDERS: ATTEND Internal Medicine
PROC: 5A1D60Z (ICD-10-PCS; principal; 2016-08-27)
DX: I13.2 Hypertensive heart and chronic kidney disease with heart failure and with stage 5 chronic kidney disease, or end stage renal disease (principal); J18.9 Pneumonia, unspecified organism; N18.6 End stage renal disease; I31.3 Pericardial effusion (noninflammatory); E11.22 Type 2 diabetes mellitus with diabetic chronic kidney disease; E83.51 Hypocalcemia; I50.40 Unspecified combined systolic (congestive) and diastolic (congestive) heart failure; E87.5 Hyperkalemia; L73.9 Follicular disorder, unspecified; D64.9 Anemia, unspecified; E03.9 Hypothyroidism, unspecified; E78.5 Hyperlipidemia, unspecified; F17.210 Nicotine dependence, cigarettes, uncomplicated; Z91.15 Patient's noncompliance with renal dialysis; Z79.899 Other long term (current) drug therapy; Z99.2 Dependence on renal dialysis; Z98.1 Arthrodesis status
CPT/HCPCS: 36415; 71020; 80048; 80053; 80061; 80069; 81001; 82330; 82550; 82553; 82728; 82746; 82948; 83036; 83540; 83550; 83735; 83880; 84439; 84443; 84484; 85025; 85027; 85379; 85610; 85730; 87040; 87088; 93005; 93010; 93306; 94640; 94761; 96365; 96375; C9113; G0480; J0610; J1644; J1815; J7030; 97001-GP; 97112-GP; 97116-GP; 97530-GP; S0164